=== PATIENT | female | born 2000 ===

== ENCOUNTER → 2021-01-24 | Outpatient (REF) | payer OTHER ==
[2021-01-24 16:38] LABS: HCG, SERUM QUALITATIVE NEGATIVE (NEGATIVE)
[2021-01-24 16:47] LABS: HCG, SERUM QUANTITATIVE < 1.0 MIU/ML
== END ==
LOC: M LAB REF 16:05
PROVIDERS: ATTEND Physician Assistant Medical
DX: N91.2 Amenorrhea, unspecified (principal)